=== PATIENT | male | born 1970 | race Caucasian/White ===

== ENCOUNTER → 2017-01-01 | Outpatient (CLI) | payer BC ==
--- NOTE | 2017-01-02 10:49 | SLEEP ---
DATE OF STUDY: 01/01/2017 ATTENDING PHYSICIAN: Dr. Andrea. The patient is 46 years old who weighs 190 pounds with a BMI of 24. The patient's [place] score was 0. Sleep study was performed at [facility]. During the night study, the patient spent 414 minutes in bed and slept for 390 minutes with a sleep efficiency of 94%. Sleep latency was 6 minutes with a REM latency of 89 minutes. Overall, sleep architecture showed normal stage I sleep, increased stage II sleep, normal slow wave and slightly reduced REM sleep. During the night study, the patient had only 4 obstructive apneas, 2 mixed apneas and no central apneas. The patient's apnea hypopnea index was only 2 per hour, supine index 3 per hour and REM index of 6 per hour. Review of nocturnal oximetry study revealed a mean oxygen saturation of 95% with the lowest of 89, 99% of the time oxygen saturation remained above 89%. EKG monitoring revealed normal sinus rhythm, average heart rate was 54 beats per minute. No sustained arrhythmias were observed. PLMS were seen at index of 2 per hour and 1 per hour caused EEG arousals. Due to low AHI, the patient did not meet the split night criteria for CPAP initiation. IMPRESSION: 1. No clinically significant sleep disorder breathing. The patient's AHI for the entire night was only 2 per hour. 2. No clinically significant nocturnal hypoxia. 3. No clinically significant periodic limb movements during sleep. RECOMMENDATIONS: 1. The patient did not meet the split night criteria for CPAP initiation. 2. Avoid [employer] depressants. RICARDA GARBER MD DR: EMMANUEL/catarina JOB#: [id number] / [id number] VARGHESE Salazar MD
== END | disposition home or self-care (01) ==
LOC: SLPLAB 18:10
PROVIDERS: ATTEND Internal Medicine Cardiovascular Disease
DX: G47.33 Obstructive sleep apnea (adult) (pediatric) (principal)
CPT/HCPCS: 95810